=== PATIENT | female | born 1970 | race Caucasian/White ===

== ENCOUNTER 2023-02-12 16:24 | Emergency (ER) | payer BC, SELFPAY ==
[2023-02-12 16:28] VITALS: BP 106/74; PULSE 76; RESP 18; TEMP 36.6; O2SAT 100; BMI 28.9
--- NOTE | 2023-02-12 17:07 | ED_ITS ---
HPI - Syncope General Chief Complaint: Dizziness/Vertigo Stated Complaint: passing out, confused Time Seen by Provider: 02/12/23 16:40 History of Present Illness HPI narrative: This 52-year-old female comes in because of syncopal event that occurred prior to arrival. She states that she had been working out in the y[place] for about 10 minutes and then she began to feel lightheaded and saw stars. This progressed to loss of consciousness. Her sister was with her and helped her to the ground. Her sister states that she looked very pale. Soon after lying down she recovered consciousness but was not quite normally functioning. They tempted to get her up and again she had recurrent symptoms. In all she had 3 such episodes of brief loss of consciousness with associated lightheadedness and pallor of her skin. She does not report any injury. She does not have any chest pain, nause a, vomiting, shortness of breath, or signs of infection. She did recently receive her COVID vaccination. She states that her blood pressure is typically low and many time she feels a bit lightheaded when arising from a sitting or lying position. This has not resulted in syncope in the past. She arrives here with normal vital signs including blood pressure at 106/74. Related Data Home Medications Medication Instructions Recorded Confirmed levothyroxine 125 mcg tablet 125 mcg PO QAM 02/12/23 02/12/23 norethindrone acetate 0.5 1 tab PO DAILY 02/12/23 02/12/23 mg-ethinyl estradiol 2.5 mcg tablet sertraline 100 mg tablet 100 mg PO DAILY 02/12/23 02/12/23 Allergies Allergy/AdvReac Type Severity Reaction Status Date / Time No Known Drug Allergies Allergy Verified 02/12/23 16:32 Review of Systems Status of ROS: Reports: 10 or more systems reviewed and unremarkable except as noted in History and below Narrative: Constitutional: No fevers, no weight gain or loss. Eyes: No discharge. No vision changes. HENT: No congestion, no sore throat, no ear pain. Cardiovascular: No chest pain, no palpitations. Respiratory: No shortness of breath, no wheezes, no cough. Gastrointestinal: No abdominal pain, no vomiting, no diarrhea. Genitourinary: No dysuria, no hematuria. Musculoskeletal: Normal range of motion. Skin: No rashes, no pruritis. Neurological: No weakness, sensory change, speech change. Episodic lightheadedness with syncope today. Endo/Heme/Allergies: No bruising or bleeding. No polydipsia. Pysch: no suicidality, no anxiety, no insomnia. All other systems reviewed and are negative. PFSH [facility] Social History Smoking Status: Never smoker Do you use any of these nicotine containing products: None Second hand tobacco smoke exposure: No How often do you have a drink containing alcohol: never How often do you have six or more drinks on one occasion: Never AUDIT-C Alcohol total score: 0 Non-prescribed substance use: denies use service: No Exam Narrative: Exam Narrative: Constitutional: Well-developed, well-nourished, no acute distress. HEENT: Normocephalic, atraumatic. Neck: Normal range of motion. Nontender. Supple. Heart: Regular. No murmurs. Normal rate. Intact distal pulses. Lungs: Clear to auscultation. No chest discomfort. No wheezes, rhonchi, or rales. Abdomen: Normal bowel sounds. Nontender. No rebound tenderness. Genitalia: Deferred. Back: No midline tenderness. Normal range of motion. Extremities: Normal range of motion. No injury. Skin: Intact. No rash. Warm. No erythema or pallor. Neurologic: No altered sensation. No weakness. Alert and oriented. Psychiatric: No suicidality. No anxiety or depression. No insomnia. Nursing notes and vitals signs are reviewed. Const: Vital Signs, click to edit/add: Vital Signs - 24 hr 02/12/23 16:28 02/12/23 18:15 02/12/23 18:20 Temperature 97.9 F Pulse Rate [Right Pulse Oximeter] 76 Pulse Rate [orthos tatic sitting] 79 Pulse Rate [orthos tatic standing] 88 Respiratory Rate 18 Blood Pressure [Ri ght Upper Arm] 106/74 Blood Pressure [or thostatic sitting] 112/71 Blood Pressure [or thostatic standing ] 89/73 L Pulse Oximetry 100 Oxygen Delivery Me thod Room Air Course Vital Signs Vital signs: Initial Vital Signs Temperature 97.9 F 02/12/23 16:28 Temperature Source Temporal Artery Scan 02/12/23 16:28 Pulse Rate 76 02/12/23 16:28 Respiratory Rate 18 02/12/23 16:28 Blood Pressure 106/74 02/12/23 16:28 Blood Pressure Mean 84 02/12/23 16:28 Blood Pressure Position Sitting 02/12/23 16:28 Pulse Oximetry 100 02/12/23 16:28 Oxygen Delivery Method Room Air 02/12/23 16:28 Vital Signs Temperature 97.9 F 02/12/23 16:28 Pulse Rate 76 02/12/23 16:28 Respiratory Rate 18 02/12/23 16:28 Blood Pressure 106/74 02/12/23 16:28 Pulse Oximetry 100 02/12/23 16:28 Oxygen Delivery Method Room Air 02/12/23 16:28 Temperature 97.9 F 02/12/23 16:28 Pulse Rate 88 02/12/23 18:20 Respiratory Rate 18 02/12/23 16:28 Blood Pressure 89/73 L 02/12/23 18:20 Pulse Oximetry 100 02/12/23 16:28 Oxygen Delivery Method Room Air 02/12/23 16:28 MDM - Syncope MDM Narrative Medical decision making narrative: This patient comes in stating that she typically has low blood pressure and often feels lightheaded we moving from a sitting to a standing position. Today however she had loss of consciousness when feeling lightheaded. Her EKG shows normal sinus rhythm without any ST or T-wave abnormalities. Lab results also are reassuring. Her hemoglobin is just slightly low at 11.7. The patient states that she is feeling normal. She has no complaints. Orthostatic blood pressures are obtained which show a lying blood pressure at 106/64 with a heart rate of 70. A sitting blood pressure was measured at 1 12/71 with a rate of 79 beats per minute. Her standing blood pressure decreased to 89/73 with a heart rate at 88. She did not have symptoms of lightheadedness when standing for orthostatic pressures. I advised this patient to follow-up with her primary physician regarding these findings but gave reassurance is with the EKG and lab results. I recommended that she sits for a while after lying and then wait a bit before standing and then stand a while before walking to allow her body to adjust to positional changes. Lab Data Labs: Lab Results 02/12/23 Range/Units 17:17 WBC 5.80 (4.50-11.00) K/uL RBC 3.89 L (4.00-5.20) m/uL Hgb 11.7 L (12.0-16.0) gm/dL Hct 34.9 (33.0-51.0) % MCV 90 (80-100) fL MCH 30 (26-34) pg MCHC 34 (32-36) gm/dL RDW Coeff of [place] 12.3 (11.5-15.5) % Plt Count 211 (140-440) K/uL Neut % (Auto) 65.6 (42.0-72.0) % Lymph % (Auto) 21.4 (20-44) % [place] % (Auto) 9.8 (0.0-11.0) % Eos % (Auto) 1.7 (0.0-7.0) % Baso % (Auto) 0.5 (0.0-3.0) % Neut # (Auto) 3.80 (1.7-7.0) K/uL Lymph # (Auto) 1.24 (0.90-2.90) K/uL [place] # (Auto) 0.60 (0.00-0.90) K/UL Eos # (Auto) 0.10 (0.00-0.50) K/uL Baso # (Auto) 0.03 (0.00-0.30) K/uL Abs Immat Gran (auto) 0.06 (0.00-0.30) K/uL Imm/Tot Granulo (auto) 1.0 % Sodium 137 (135-149) mmol/L Potassium 3.6 (3.6-5.1) mmol/L Chloride 103 (96-114) mmol/L Carbon Dioxide 25 (20-32) mmol/L Anion Gap 9 (7-15) mEq/L BUN 11 (7-30) mg/dL Creatinine 0.8 (0.5-1.5) mg/dL Estimated Creat Clear 82.98 Estimated GFR 89 ml/min Glucose 93 (60-115) mg/dL Calcium 9.4 (8.4-10.6) mg/dL ECG Data Attestation: I personally reviewed and interpreted this ECG as follows: Interpretation: Normal sinus rhythm. Rate is 70 beats per minute. There are no ST or T-wave abnormalities. Discharge Plan Discharge Clinical Impression: Orthostatic hypotension Patient Disposition: Home w/ Parent or Adult Condition: Improved Additional Instructions: Continue current plans. Slow the process of arising to standing and walking to allow for blood pressure and heart rate to adjust to the new position. Follow- up with primary physician to review medications. Return if worsening. Prescriptions: No Action sertraline 100 mg tablet 100 mg PO DAILY levothyroxine 125 mcg tablet 125 mcg PO QAM norethindrone ac-eth estradiol 0.5-2.5 mg-mcg tablet 1 tab PO DAILY Follow Up/Referrals: Provider,Not a Local [Primary Care Provider] - Stand Alone Forms: [facility] Home Info Instructions
[2023-02-12 17:23] LABS: Basophils Absolute Auto 0.03 K/uL (0.00-0.30); Basophils Percent Auto 0.5 % (0.0-3.0); Eosinophils Percent Auto 1.7 % (0.0-7.0); Hematocrit 34.9 % (33.0-51.0); Hemoglobin* 11.7 gm/dL (12.0-16.0); Immature Granulocytes Abs Auto 0.06 K/uL (0.00-0.30); Lymphocytes Absolute Auto 1.24 K/uL (0.90-2.90); Lymphocytes Percent Auto 21.4 % (20-44); Mean Corpuscular HGB Conc 34 gm/dL (32-36); Mean Corpuscular Hemoglobin 30 pg (26-34); Mean Corpuscular Volume 90 fL (80-100); Monocytes Percent Auto 9.8 % (0.0-11.0); Neutrophils Percent Auto 65.6 % (42.0-72.0); Platelet Count* 211 K/uL (140-440); RDW Coefficient of Variation % 12.3 % (11.5-15.5); Red Blood Count 3.89 m/uL (4.00-5.20)
[2023-02-12 17:33] LABS: Slide Review Reflex No
[2023-02-12 17:35] LABS: Chloride* 103 mmol/L (96-114); Potassium* 3.6 mmol/L (3.6-5.1); Sodium* 137 mmol/L (135-149)
[2023-02-12 17:38] LABS: Anion Gap 9 mEq/L (7-15); Blood Urea Nitrogen* 11 mg/dL (7-30); Carbon Dioxide* 25 mmol/L (20-32); Creatinine* 0.8 mg/dL (0.5-1.5); Est. Creatinine Clearance* 82.98; Estimated Glomerular Filt Rate 89 ml/min
[2023-02-12 17:39] LABS: Calcium* 9.4 mg/dL (8.4-10.6); Glucose* 93 mg/dL (60-115)
[2023-02-12 18:10] VITALS: BP 106/64; PULSE 70
[2023-02-12 18:15] VITALS: BP 112/71; PULSE 79
[2023-02-12 18:20] VITALS: BP 89/73; PULSE 88
--- NOTE | 2023-02-12 18:23 | ED.NURSE ---
Orthostatic BPs obtained per provider order. Pt dropped 23 points systolically from sitting to standing. See chart for exact BPs. Pt denied dizziness or lightheadedness during standing. Pt did not wobble while standing. Dr. Pereira notified and aware.
== END 2023-02-12 18:31 | disposition home or self-care (01) ==
PROVIDERS: Emergency Provider Emergency Medicine Emergency Medical Services
DX: I95.1 Orthostatic hypotension (principal)
CPT/HCPCS: 36415; 80048; 85025; 93005; 99283; 99284

== ENCOUNTER 2025-01-19 10:30 | Outpatient (RCR) | payer BC, SELFPAY | END 2025-03-22 13:36 | disposition home or self-care (01) | PROVIDERS: Visit Provider Podiatrist | DX: M72.2 Plantar fascial fibromatosis (principal); M76.821 Posterior tibial tendinitis, right leg; Z51.89 Encounter for other specified aftercare | CPT/HCPCS: 97033; 97112; 97161 ==